=== PATIENT | male | born 1965 | race American Indian/Alaskan Native ===

== ENCOUNTER 2018-12-30 06:49 | Day surgery (SDC) | payer BC ==
[~2018-12-30 06:49] MED LIST: ANCEF/STERILE WATER 2 GM/20 ML 2 GM/20 ML SYRINGE IV SCH
[2018-12-30] MEDS ORDERED: ceFAZolin 2 GM in NACL 0.9% 100 ML IV ONE (07:30)
[2018-12-30] MEDS ORDERED: VERSED IV NR (07:30)
[2018-12-30] MEDS ORDERED: NEURONTIN PO NR (07:30)
[2018-12-30] MEDS ORDERED: LACTATED RINGERS 1,000 ML IV SCH (07:51)
--- NOTE | 2018-12-30 08:20 | Anesthesia Consultation ---
Anesthesia Consult and Med Hx Date of service: 12/30/18 - Airway Anesthetic Teeth Evaluation: Poor ROM Head & Neck: Adequate Mental/Hyoid Distance: Adequate Mallampati Class: Class II Intubation Access Assessment: Probably Good - Pulmonary Exam CTA: Yes - Cardiac Exam Cardiac Exam: RRR - Pre-Operative Health Status ASA Pre-Surgery Classification: ASA1 Proposed Anesthetic Plan: General - Pulmonary Hx Smoking: No Hx Respiratory Symptoms: No - Cardiovascular System Hx Hypertension: No Hx Heart Attack/AMI: No - Central Nervous System CVA: No - Gastrointestinal Hx Gastroesophageal Reflux Disease: No - Endocrine Hx Renal Disease: No Hx Liver Disease: No Hx Insulin Dependent Diabetes: No Hx Non-Insulin Dependent Diabetes: No Hx Thyroid Disease: No - Other Systems Hx Obesity: No - Additional Comments Anesthesia Medical History Comments: No prior GA. No FHx anesthetic complications.
--- NOTE | 2018-12-30 08:21 | Anesthesia Day of Surgery ---
Anesthesia Day of Surgery - Day of Surgery Patient Examined: Yes Patient H&P Reviewed: Yes Patient is NPO: Yes
[2018-12-30] MEDS ORDERED: DIPRIVAN 10 MG/ML IV ONE (09:08)
[2018-12-30] MEDS ORDERED: DECADRON ONE (09:08)
[2018-12-30] MEDS ORDERED: TORADOL ONE (09:08)
[2018-12-30] MEDS ORDERED: SUBLIMAZE ONE (09:08)
[2018-12-30] MEDS ORDERED: ZOFRAN ONE (09:08)
[2018-12-30] MEDS ORDERED: MARCAINE-EPI 0.5%-1:200,000 INFILTRATI ONE ×4 (09:24→10:32)
[2018-12-30] MEDS ORDERED: XYLOCAINE MPF 2% ONE (10:41)
--- NOTE | 2018-12-30 10:45 | Discharge Summary ---
Short Stay Discharge Plan Activity: other (observe x 4 hrs then january d/c if stable and able to void. ice pack R groin x 6 hrs. scrotal support x 3 days. keep dressings dry x 5 days. no lifting over 5 lbs x 3 wks) Diet: other (cl liq diet. advance to solid low fat diet as ricardo) Wound: keep clean and dry Additional Instructions: surfak. I po q am x 3. aleve I po q 6-8 hrs prn for breakthrough pain Follow up with: EMELY WEBER MD [Primary Care Provider] - 7 Days
[2018-12-30] MEDS ORDERED: NORCO 5/325 PO PRN (11:35)
[2018-12-30] MEDS: DILAUDID IV PRN ×2 (11:36→11:50)
--- NOTE | 2018-12-30 11:58 | Operative Report ---
PREOPERATIVE DIAGNOSIS: Right inguinal hernia. POSTOPERATIVE DIAGNOSIS: Right inguinal hernia. PROCEDURE: Open right inguinal hernia repair with mesh. SURGEON: Tomasz Ro MD ANESTHESIA: General. ESTIMATED BLOOD LOSS: Minimal. DRAINS: No drains. COMPLICATIONS: No complications. DESCRIPTION OF PROCEDURE: The patient was taken to the operating room, prepped and draped in usual sterile fashion. Incision was made using landmarks anterior superior iliac spine and pubic tubercle. Incision was carried down to the external oblique fascia. External oblique fascia was transected down to the external inguinal ring. The cord was then isolated with a [place] drain. A large direct hernia was identified which was actually thickened and adhered to the cord and the pubic tubercle area. The hernia sac was slowly dissected free and returned to the peritoneal cavity. A preshaped keyhole Marlex mesh was then used to reconstruct the inguinal canal floor. The mesh was tacked inferiorly to the pubic tubercle area and Prem's ligament. Medially, the mesh was secured to the transversalis fascia and laterally to the iliopubic tract. The area was then irrigated copiously and dried. Checked for hemostasis and noted to be dry. The cord was then once again identified. All cord structures were noted to be intact including the ilioinguinal nerve. The cord was then on laid over the mesh. The external oblique fascia was closed over the cord with running 3-0 Vicryl suture. Subcutaneous tissues irrigated. Skin closed with kaylynn. 0.5% Marcaine with epinephrine was infiltrated over the fascia, subcutaneous, and skin for postoperative pain relief. Ilioinguinal nerve block was also performed. The patient tolerated the procedure well and left OR in stable condition. JOB# [id number] FP/NTS
--- NOTE | 2018-12-30 14:13 | Post Anesthesia Evaluation ---
- Post Anesthesia Evaluation Patient Participated: Yes Airway Patent: Yes Stable Respiratory Function: Yes Nausea/Vomiting: No Temp > 96.8F: Yes Pain Manageable: Yes Adequeate Hydration: Yes Anesthesia Complications: No
[2018-12-30 20:34] VITALS: BP 117/68
== END 2018-12-30 15:15 | disposition home or self-care (01) ==
LOC: OR 06:49
PROVIDERS: ATTEND Surgery
DX: K40.90 Unilateral inguinal hernia, without obstruction or gangrene, not specified as recurrent (principal); Z79.899 Other long term (current) drug therapy; Z98.890 Other specified postprocedural states
CPT/HCPCS: 49505; C1781; J0690; J1100; J1170; J1885; J2250; J2405; J2704; J3010; J7120